=== PATIENT | male | born 1940 | race Caucasian/White ===

== ENCOUNTER → 2020-11-12 | Outpatient (CLI) | payer MEDICARE, BC | LOC: KOH-I 14:03 | DX: R05.9 Cough, unspecified (principal); R91.8 Other nonspecific abnormal finding of lung field | CPT/HCPCS: 71046 ==

== ENCOUNTER → 2020-12-09 | Outpatient (CLI) | payer MEDICARE, BC | LOC: RAD 12:33 | DX: J18.9 Pneumonia, unspecified organism (principal); J98.11 Atelectasis | CPT/HCPCS: 71046 ==

== ENCOUNTER → 2021-03-06 | Outpatient (CLI) | payer MEDICARE, BC ==
[~2021-03-06] VITALS: Ht 185.4 cm; Wt 117.9 kg
== END ==
LOC: EROP 09:44
DX: U07.1 COVID-19 (principal); Z23 Encounter for immunization; I11.0 Hypertensive heart disease with heart failure; I50.9 Heart failure, unspecified; I25.10 Atherosclerotic heart disease of native coronary artery without angina pectoris; E11.9 Type 2 diabetes mellitus without complications; Z85.6 Personal history of leukemia
CPT/HCPCS: M0247; Q0247

== ENCOUNTER → 2021-03-17 | Outpatient (CLI) | payer MEDICARE, BC | LOC: KOH-I 09:55 | DX: R05.9 Cough, unspecified (principal) | CPT/HCPCS: 71046 ==

== ENCOUNTER 2021-03-29 11:42 | Inpatient (IN) | payer MEDICARE, BC ==
[~2021-03-29] VITALS: Ht 185.4 cm; Wt 116.1 kg
[2021-03-29 12:36] LABS: HEMOGLOBIN 14.4 gm/dl (14.0-17.5); RED BLOOD COUNT 4.76 M/UL (4.20-5.50)
[2021-03-29 12:39] LABS: WHITE BLOOD COUNT 48.1 K/UL (4.5-11.0)
[2021-03-29 13:01] LABS: BUN/CREATININE RATIO 16 (0-10)
[2021-03-29] MEDS ORDERED: FUROSEMIDE40 MG PO (15:33)
[2021-03-29] MEDS ORDERED: IRBESARTAN300 MG PO (15:35)
[2021-03-29] MEDS ORDERED: GABAPENTIN100 MG PO (15:35)
[2021-03-29] MEDS ORDERED: NOVOLIN 70100 UNIT/1 SC (15:36)
[2021-03-29] MEDS ORDERED: FLOMAX 0.4 MG0.4 MG PO (15:36)
[2021-03-29] MEDS ORDERED: METFORMIN HCL1000 MG PO (15:37)
[2021-03-29] MEDS ORDERED: ELIQUIS5 MG PO (15:37)
[2021-03-29] MEDS ORDERED: PROVENTIL HFA6.7 GM INH (15:38)
[2021-03-29] MEDS ORDERED: PRAVASTATIN SOD80 MG PO (15:38)
[2021-03-29] MEDS ORDERED: LEVOTHYROXINE137 MCG PO (15:38)
[2021-03-29] MEDS ORDERED: AMLODIPINE BESYL5 MG PO (15:39)
[2021-03-29] MEDS ORDERED: ISOSORBIDE MON120 MG PO (15:39)
[2021-03-29] MEDS ORDERED: ALDACTONE 25MG25 MG PO (15:40)
[2021-03-29] MEDS ORDERED: VITAMIN B-121000 MC1 PO (15:40)
[2021-03-29] MEDS ORDERED: LOPRESSOR 50 MG50 MG PO (15:41)
[2021-03-29] MEDS ORDERED: ECOTRIN81 MG PO (15:43)
[2021-03-30 04:57] LABS: HEMOGLOBIN 12.7 gm/dl (14.0-17.5)
[2021-03-30 05:05] LABS: RED BLOOD COUNT 4.24 M/UL (4.20-5.50); WHITE BLOOD COUNT 34.3 K/UL (4.5-11.0)
[2021-03-30 05:13] LABS: BUN/CREATININE RATIO 16 (0-10)
[2021-03-31 04:42] LABS: HEMOGLOBIN 12.3 gm/dl (14.0-17.5); RED BLOOD COUNT 4.13 M/UL (4.20-5.50)
--- NOTE | 2021-03-31 04:46 | NUR ---
STRAIGHT CATHED PATIENT AND GOT 450 ML OUT. NO COMPLICATIONS WITH PROCEDURE AND PT TOLERATED WELL.
[2021-03-31 05:10] LABS: WHITE BLOOD COUNT 61.1 K/UL (4.5-11.0)
== END 2021-03-31 14:02 | disposition home or self-care (01) | DRG 417 ==
LOC: ER1 11:42 → MED SURG 4 14:50 → CDU 14:50 → MED SURG 4 17:17
PROVIDERS: Physician Assistant; Surgery; ADMIT Internal Medicine Infectious Disease
PROC: 3E03329 Introduction of Other Anti-infective into Peripheral Vein, Percutaneous Approach (ICD-10-PCS; 2021-03-29)
PROC: 0FT44ZZ Resection of Gallbladder, Percutaneous Endoscopic Approach (ICD-10-PCS; principal; 2021-03-30 15:22)
DX: K80.00 Calculus of gallbladder with acute cholecystitis without obstruction (principal); U07.1 COVID-19; C91.11 Chronic lymphocytic leukemia of B-cell type in remission; G47.33 Obstructive sleep apnea (adult) (pediatric); I25.10 Atherosclerotic heart disease of native coronary artery without angina pectoris; E03.9 Hypothyroidism, unspecified; E11.9 Type 2 diabetes mellitus without complications; I11.0 Hypertensive heart disease with heart failure; I50.9 Heart failure, unspecified; R00.1 Bradycardia, unspecified; I44.0 Atrioventricular block, first degree; E78.5 Hyperlipidemia, unspecified; I48.0 Paroxysmal atrial fibrillation; Z99.81 Dependence on supplemental oxygen; Z86.16 Personal history of COVID-19; Z87.01 Personal history of pneumonia (recurrent); Z95.1 Presence of aortocoronary bypass graft; Z79.01 Long term (current) use of anticoagulants; Z80.8 Family history of malignant neoplasm of other organs or systems; Z79.899 Other long term (current) drug therapy; Z79.82 Long term (current) use of aspirin
CPT/HCPCS: 36415; 71275; 80053; 82550; 82553; 82962; 83690; 83874; 84484; 85025; 93005; 94760; 96374; 96375; 96376; 99284; J0690; J1100; J1170; J1335; J2001; J2270; J2405; J2543; J2704; J2710; J3010; J7030; J7120; Q9967; U0002

== ENCOUNTER → 2021-04-14 | Outpatient (CLI) | payer MEDICARE, BC ==
[~2021-04-14] MED LIST: ALDACTONE 25MG25 MG PO; AMLODIPINE BESYL5 MG PO; ECOTRIN81 MG PO; ELIQUIS5 MG PO; FLOMAX 0.4 MG0.4 MG PO; FUROSEMIDE40 MG PO; GABAPENTIN100 MG PO; IRBESARTAN300 MG PO; ISOSORBIDE MON120 MG PO; LEVOTHYROXINE137 MCG PO; LOPRESSOR 50 MG50 MG PO; METFORMIN HCL1000 MG PO; NOVOLIN 70100 UNIT/1 SC; PRAVASTATIN SOD80 MG PO; PROVENTIL HFA6.7 GM INH; VITAMIN B-121000 MC1 PO
== END ==
LOC: KOH-I 10:45
DX: J18.9 Pneumonia, unspecified organism (principal); J94.8 Other specified pleural conditions
CPT/HCPCS: 71046

== ENCOUNTER 2021-04-30 10:14 | Emergency (ER) | payer MEDICARE, BC ==
[2021-04-30 10:55] LABS: HEMOGLOBIN 13.7 gm/dl (14.0-17.5); RED BLOOD COUNT 4.58 M/UL (4.20-5.50)
[2021-04-30 11:05] LABS: WHITE BLOOD COUNT 49.5 K/UL (4.5-11.0)
[2021-04-30 11:20] LABS: BUN/CREATININE RATIO 15 (0-10)
== END 2021-04-30 12:42 | disposition home or self-care (01) ==
LOC: ER1 10:14
PROVIDERS: Emergency Medicine
DX: E16.2 Hypoglycemia, unspecified (principal)
CPT/HCPCS: 80053; 82962; 83605; 85025; 87040; 93005; 99285